=== PATIENT | female | born 1960 ===

== ENCOUNTER 2023-02-23 06:23 | Day surgery (SDC) | payer OTHER ==
[~2023-02-23] VITALS: Ht 170.2 cm; Wt 125.2 kg
[~2023-02-23 06:23] MED LIST: COZAAR50 MG PO; HYDROCHLOROTH12.5 MG PO
[2023-02-23] MEDS ORDERED: IBU600 MG PO (11:01)
== END 2023-02-23 15:50 | disposition home or self-care (01) ==
LOC: CIR.AMB 06:23
PROVIDERS: ATTEND Obstetrics & Gynecology Gynecology
DX: D25.0 Submucous leiomyoma of uterus (principal); N85.01 Benign endometrial hyperplasia; Z20.822 Contact with and (suspected) exposure to COVID-19; I10 Essential (primary) hypertension